=== PATIENT | female | born 1950 | race American Indian/Alaskan Native ===

== ENCOUNTER 2018-04-10 21:31 | Emergency (ER) | payer MEDICARE ==
[2018-04-10] MEDS ORDERED: CATAPRES PO ONE (22:45)
[2018-04-11] MEDS ORDERED: NORCO 5/325 ONE (01:19)
[2018-04-11] MEDS ORDERED: NORCO 5/325 PO ONE (01:21)
[2018-04-11] MEDS ORDERED: COZAAR PO ONE (01:21)
[2018-04-11 03:46] VITALS: BP 199/115
[2018-04-11] MEDS ORDERED: XYLOCAINE 1% 20 mL INFILTRATI ONE (04:15)
[2018-04-11] MEDS ORDERED: BOOSTRIX IM ONE (04:15)
--- NOTE | 2018-04-11 04:46 | XRay Report ---
FINAL REPORT EXAM: XR FOOT 3+V LT HISTORY: laceration blunt trauma TECHNIQUE: Three views of the left foot were obtained. FINDINGS: There is a hallux valgus deformity of the 1st metatarsal phalangeal joint. There is no evidence of fracture or dislocation. The soft tissues otherwise are unremarkable. IMPRESSION: Hallux valgus deformity. No evidence of fracture or soft tissue injury.
--- NOTE | 2018-04-11 05:52 | Emergency Department Report ---
ED Lower Extremity HPI - General Chief Complaint: Extremity Injury, Lower Stated Complaint: L FOOT PAIN Time Seen by Provider: 04/11/18 04:12 Source: patient Mode of arrival: Ambulatory Limitations: No Limitations - History of Present Illness Initial Comments: Patient is 67-year-old female presents after his drop in the mirror on her left great toe splitting nailpain with ambulation r and swelling incident happened about 14 hours ago All bleeding is controlled all bleeding is controlled MD Complaint: foot injury Injury: Toes: Left (left Great Toe ) Type of Injury: blunt Place: home Severity: moderate Severity scale (0 -10): 5 Improves With: nothing Worsens With: weight bearing, movement, palpation Context: direct blow Associated Symptoms: snap/pop sensation, swelling, tingling, ambulatory. denies : numbness - Related Data Previous Rx's Medication Instructions Recorded Last Taken Type Cephalexin [Keflex] 500 mg PO Q8HR #30 cap 04/11/18 Unknown Rx traMADol [Ultram] 50 mg PO Q6HR PRN #15 tablet 04/11/18 Unknown Rx Allergies Allergy/AdvReac Type Severity Reaction Status Date / Time No Known Allergies Allergy Unverified 04/10/18 22:38 ED Review of Systems ROS: Stated complaint: L FOOT PAIN Other details as noted in HPI Constitutional: denies: chills, fever Eyes: denies: eye pain, eye discharge, vision change ENT: denies: ear pain, throat pain Respiratory: denies: cough, shortness of breath, wheezing Cardiovascular: denies: chest pain, palpitations Endocrine: no symptoms reported Gastrointestinal: denies: abdominal pain, nausea, diarrhea Genitourinary: denies: urgency, dysuria, discharge Musculoskeletal: joint swelling, arthralgia, myalgia Skin: denies: rash, lesions Neurological: denies: headache, weakness, paresthesias Psychiatric: denies: anxiety, depression Hematological/Lymphatic: denies: easy bleeding, easy bruising ED Past Medical Hx - Past Medical History Previous Medical History?: Yes Hx Hypertension: Yes Hx Diabetes: Yes - Surgical History Past Surgical History?: Yes Additional Surgical History: Tubaligation x 30 years ago - Social History Smoking Status: Never Smoker Substance Use Type: Prescribed - Medications Home Medications: Home Medications Medication Instructions Recorded Confirmed Last Taken Type Cephalexin [Keflex] 500 mg PO Q8HR #30 cap 04/11/18 Unknown Rx traMADol [Ultram] 50 mg PO Q6HR PRN #15 tablet 04/11/18 Unknown Rx ED Physical Exam - General Limitations: No Limitations General appearance: alert, in no apparent distress - Head Head exam: Present: atraumatic, normocephalic - Eye Eye exam: Present: normal appearance - ENT ENT exam: Present: mucous membranes moist - Neck Neck exam: Present: normal inspection - Cardiovascular Cardiovascular Exam: Present: regular rate, normal rhythm. Absent: systolic murmur, diastolic murmur, rubs, gallop - GI/Abdominal GI/Abdominal exam: Present: soft, normal bowel sounds - Rectal Rectal exam: Present: normal inspection - Extremities Exam Extremities exam: Present: tenderness, normal capillary refill, pedal edema, joint swelling, calf tenderness - Expanded Lower Extremity Exam Left Knee exam: Absent: normal inspection, dislocation, erythema, effusion, pain w/ pronation/supination, posterior draw sign, pain/laxity with valgus, pain/laxity with varus, full knee extension, full ROM, tenderness, swelling, abrasion, laceration, ecchymosis, deformity, crepidus Foot/Toe exam: Present: full ROM, tenderness, swelling, laceration. Absent: ecchymosis, deformity, crepidus Neuro vascular tendon exam: Present: no vascular compromise, abnormal cap refill. Absent: pulse deficit, motor deficit, sensory deficit, tendon deficit, extremity cold to touch, pallor, abnormal 2-point discrimination, decreased fine /light touch, foot drop, peroneal nerve deficit Gait: Positive: observed and normal, observed and limited by pain - Back Exam Back exam: Present: normal inspection, muscle spasm, paraspinal tenderness. Absent: CVA tenderness (L) - Neurological Exam Neurological exam: Present: alert, oriented X3 ED Course Vital Signs 04/10/18 04/10/18 04/11/18 22:38 22:48 01:14 Temperature 97.9 F Pulse Rate 78 78 76 Respiratory 16 17 Rate Blood Pressure 199/109 199/109 Blood Pressure 199/109 183/114 [Right] O2 Sat by Pulse 98 98 Oximetry 04/11/18 03:35 Temperature Pulse Rate 69 Respiratory 17 Rate Blood Pressure Blood Pressure 199/115 [Right] O2 Sat by Pulse 99 Oximetry - I & D Left Plantar Toe Site: left great toe Blade Size: 11 I & D Procedure: betadine prep Progress: left great toe partial avulsion , sight cleaned with betadine solution anesthesia wth 1% lidocaine, t,parital nail removed intact ,all beeding controlled, rom intact , sterile dressing applied , pt given wound care isntructions , pt tolerated with minimal distress , ED Lower Extremity MDM - Radiology Data Radiology results: report reviewed, image reviewed no fracture no soft tissue injury - Medical Decision Making this a partia nail avulsion , nail removed see procedure note,pt is pcn allergic will dc to home with rx for keflex, ultram, wound care instructons , pt verbal ize agreement and understanding of same. pt is ambulatory with steady gate at this time , all bleeding is controlle, Critical care attestation.: If time is entered above; I have spent that time in minutes in the direct care of this critically ill patient, excluding procedure time. ED Disposition Clinical Impression: Nail avulsion, toe Qualifiers: Encounter type: initial encounter Qualified Code(s): S91.209A - Unspecified open wound of unspecified toe(s) with damage to nail, initial encounter Disposition: DC-01 TO HOME OR SELFCARE Is pt being admited?: No Does the pt Need Aspirin: No Condition: Good Instructions: Toenail/Fingernail Removal (ED) Prescriptions: Cephalexin [Keflex] 500 mg PO Q8HR #30 cap traMADol [Ultram] 50 mg PO Q6HR PRN #15 tablet PRN Reason: Pain Referrals: RACHNA SCANLON MD [Primary Care Provider] - 3-5 Days Forms: Work/School Release Form(ED) Time of Disposition: 06:16
== END 2018-04-11 06:16 | disposition home or self-care (01) ==
LOC: ED 21:31
DX: S91.202A Unspecified open wound of left great toe with damage to nail, initial encounter (principal); I10 Essential (primary) hypertension; E11.9 Type 2 diabetes mellitus without complications; W20.8XXA Other cause of strike by thrown, projected or falling object, initial encounter; Y93.89 Activity, other specified; Y92.89 Other specified places as the place of occurrence of the external cause; Y99.8 Other external cause status
CPT/HCPCS: 90471; 90715; 99283

== ENCOUNTER 2018-06-30 13:20 | Emergency (ER) | payer MEDICARE ==
--- NOTE | 2018-06-30 16:04 | Emergency Department Report ---
- General Chief complaint: Skin Rash Stated complaint: ALLERGIC REACTION Time Seen by Provider: 06/30/18 15:52 Source: patient Mode of arrival: Ambulatory Limitations: No Limitations - History of Present Illness Initial comments: Patient reports painful rash on the right arm and hand that started five days MD complaint: rash Onset/Timin -: days(s) Tetanus Up to Date: unsure Location: RUE, R hand Severity: severe Severity scale (0 -10): 9 Quality: aching, constant Consistency: constant Improves with: none Worsens with: none Context: other (unknown) Associated symptoms: athralgias Treatments Prior to Arrival: other (heating pad) - Related Data Previous Rx's Medication Instructions Recorded Last Taken Type cephALEXin [Keflex] 500 mg PO Q8HR #30 cap 04/11/18 Unknown Rx traMADol [Ultram] 50 mg PO Q6HR PRN #15 tablet 04/11/18 Unknown Rx Acetaminophen with Codeine 1 each PO Q6H #10 tablet 06/30/18 Unknown Rx [Tylenol with Codeine #3 Tablet] Valacyclovir HCl [Valtrex] 1,000 mg PO TID #21 tablet 06/30/18 Unknown Rx Allergies Allergy/AdvReac Type Severity Reaction Status Date / Time No Known Allergies Allergy Unverified 04/10/18 22:38 Abscess Boil HPI - HPI Chief Complaint: Skin Rash Stated Complaint: ALLERGIC REACTION Time Seen by Provider: 06/30/18 15:52 Home Medications: Previous Rx's Medication Instructions Recorded Last Taken Type cephALEXin [Keflex] 500 mg PO Q8HR #30 cap 04/11/18 Unknown Rx traMADol [Ultram] 50 mg PO Q6HR PRN #15 tablet 04/11/18 Unknown Rx Acetaminophen with Codeine 1 each PO Q6H #10 tablet 06/30/18 Unknown Rx [Tylenol with Codeine #3 Tablet] Valacyclovir HCl [Valtrex] 1,000 mg PO TID #21 tablet 06/30/18 Unknown Rx Allergies/Adverse Reactions: Allergies Allergy/AdvReac Type Severity Reaction Status Date / Time No Known Allergies Allergy Unverified 04/10/18 22:38 ED Review of Systems ROS: Stated complaint: ALLERGIC REACTION Other details as noted in HPI Constitutional: denies: chills, fever Eyes: denies: eye pain, eye discharge, vision change ENT: denies: ear pain, throat pain, hearing loss, epistaxis Respiratory: denies: cough, shortness of breath, SOB with exertion, SOB at rest , stridor, wheezing Cardiovascular: denies: chest pain, palpitations, dyspnea on exertion, orthopnea Endocrine: no symptoms reported Gastrointestinal: denies: abdominal pain, nausea, diarrhea Genitourinary: denies: urgency, dysuria, discharge Musculoskeletal: denies: back pain, joint swelling, arthralgia Skin: rash (RUE and right hand). denies: lesions, change in color, change in hair/nails, pruritus Neurological: denies: headache, weakness, paresthesias Psychiatric: denies: anxiety, depression Hematological/Lymphatic: denies: easy bleeding, easy bruising ED Past Medical Hx - Past Medical History Hx Hypertension: Yes Hx Diabetes: Yes - Surgical History Additional Surgical History: Tubaligation x 30 years ago - Social History Smoking Status: Never Smoker Substance Use Type: Alcohol - Medications Home Medications: Home Medications Medication Instructions Recorded Confirmed Last Taken Type cephALEXin [Keflex] 500 mg PO Q8HR #30 cap 04/11/18 Unknown Rx traMADol [Ultram] 50 mg PO Q6HR PRN #15 tablet 04/11/18 Unknown Rx Acetaminophen with Codeine 1 each PO Q6H #10 tablet 06/30/18 Unknown Rx [Tylenol with Codeine #3 Tablet] Valacyclovir HCl [Valtrex] 1,000 mg PO TID #21 tablet 06/30/18 Unknown Rx ED Physical Exam - General Limitations: No Limitations General appearance: alert, in no apparent distress - Eye Eye exam: Present: normal appearance, PERRL, EOMI - ENT ENT exam: Present: normal exam, normal orophraynx, mucous membranes moist. Absent: mucous membranes dry - Neck Neck exam: Present: normal inspection, full ROM. Absent: tenderness, meningismus, lymphadenopathy, thyromegaly - Respiratory Respiratory exam: Present: normal lung sounds bilaterally. Absent: respiratory distress, wheezes, rales, rhonchi, stridor, chest wall tenderness, accessory muscle use, decreased breath sounds, prolonged expiratory - Cardiovascular Cardiovascular Exam: Present: regular rate, normal rhythm, normal heart sounds. Absent: systolic murmur, diastolic murmur, rubs, gallop - Extremities Exam Extremities exam: Present: normal inspection, full ROM, normal capillary refill. Absent: tenderness, pedal edema, joint swelling - Back Exam Back exam: Present: normal inspection, full ROM. Absent: tenderness, CVA tenderness (R), CVA tenderness (L), muscle spasm, paraspinal tenderness, vertebral tenderness, rash noted - Neurological Exam Neurological exam: Present: alert, oriented X3, CN II-XII intact, normal gait, reflexes normal. Absent: motor sensory deficit - Psychiatric Psychiatric exam: Present: normal affect, normal mood - Skin Skin exam: Present: warm, intact, rash, vesicles (TTP dermatomal clustered vesicles on an erythematous base RUE, right dorsum and palmar hand). Absent: dry, cyanosis, diaphoretic, urticaria, petechiae, pallor, abrasion, ecchymosis ED Course Vital Signs 06/30/18 13:26 Temperature 98 F Pulse Rate 89 Respiratory 18 Rate Blood Pressure 180/95 O2 Sat by Pulse 99 Oximetry ED Medical Decision Making - Lab Data Vital Signs 06/30/18 13:26 Temperature 98 F Pulse Rate 89 Respiratory 18 Rate Blood Pressure 180/95 O2 Sat by Pulse 99 Oximetry - Medical Decision Making During the course of ED, all other systems were unremarkable except for documentation. Patient was sent home with prescriptions for Tylenol #3 and Vatrex, instructed to follow up with PCP this week, she verbalized understanding - Differential Diagnosis Shingles, Maculopapular lesions Critical care attestation.: If time is entered above; I have spent that time in minutes in the direct care of this critically ill patient, excluding procedure time. ED Disposition Clinical Impression: Shingles Qualifiers: Herpes zoster complications: without complications Qualified Code(s): B02.9 - Zoster without complications Disposition: -01 TO HOME OR SELFCARE Is pt being admited?: No Does the pt Need Aspirin: No Condition: Stable Instructions: Herpes Zoster (ED) Additional Instructions: Take medication as directed. No drinking or driving while taking pain medication. Follow up with your PCP this week Prescriptions: Acetaminophen with Codeine [Tylenol with Codeine #3 Tablet] 1 each PO Q6H #10 tablet Valacyclovir HCl [Valtrex] 1,000 mg PO TID #21 tablet Referrals: PRIMARY CARE, [Primary Care Provider] - 3-5 Days Time of Disposition: 16:11
[2018-06-30 16:19] VITALS: BP 136/78
== END 2018-06-30 16:20 | disposition home or self-care (01) ==
LOC: ED 13:20
DX: B02.9 Zoster without complications (principal); I10 Essential (primary) hypertension; E11.9 Type 2 diabetes mellitus without complications; Z98.51 Tubal ligation status
CPT/HCPCS: 99282

== ENCOUNTER 2019-09-05 22:02 | Emergency (ER) | payer MEDICARE, OTHER ==
[2019-09-05 22:17] VITALS: BP 141/97
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
== END 2019-09-06 01:16 | disposition home or self-care (01) ==
LOC: ED 22:02
DX: S16.1XXA Strain of muscle, fascia and tendon at neck level, initial encounter (principal); S39.012A Strain of muscle, fascia and tendon of lower back, initial encounter; I10 Essential (primary) hypertension; E11.9 Type 2 diabetes mellitus without complications; V49.49XA Driver injured in collision with other motor vehicles in traffic accident, initial encounter; Y93.89 Activity, other specified; Y92.89 Other specified places as the place of occurrence of the external cause; Y99.8 Other external cause status
CPT/HCPCS: 99282

== ENCOUNTER 2022-04-11 02:31 | Emergency (ER) | payer MEDICARE, OTHER ==
[2022-04-11 04:26] LABS: Basophils % (Auto) 0.6 % (0.0-1.8); Eosinophils # (Auto) 0.1 K/mm3 (0.0-0.4); Eosinophils % (Auto) 0.7 % (0.0-4.3); Hematocrit 39.7 % (30.3-42.9); Lymphocytes % (Auto) 28.5 % (13.4-35.0); Mean Corpuscular HGB Conc 33 % (30-34); Mean Corpuscular Volume 83 fl (79-97); Monocytes # (Auto) 0.6 K/mm3 (0.0-0.8); Monocytes % (Auto) 8.8 % (0.0-7.3); Platelet Count 254 K/mm3 (140-440)
[2022-04-11 04:38] LABS: BUN/Creatinine Ratio 23; Blood Urea Nitrogen 21 mg/dL (7-17); Calcium 10.8 mg/dL (8.4-10.2); Hemolysis Index 3
--- NOTE | 2022-04-11 07:48 | Event Note ---
ED Screening Note ED Screening Note: pt in ER 0700 inc BG labs noted This initial assessment/diagnostic orders/clinical plan/treatment(s) is/are subject to change based on patients health status, clinical progression and re- assessment by fellow clinical providers in the ED. Further treatment and workup at subsequent clinical providers discretion. Patient/guardian urged not to elope from the ED as their condition may be serious if not clinically assessed and managed. Initial orders include: CN Negar aware pt present
--- NOTE | 2022-04-11 08:12 | Emergency Department Report ---
ED General Adult HPI - General Chief complaint: Hyperglycemia Stated complaint: UNRINATING EVERY 30 MINS Time Seen by Provider: 04/11/22 08:11 Source: patient, RN notes reviewed, old records reviewed Mode of arrival: Ambulatory Limitations: No Limitations - History of Present Illness Initial comments: The patient was evaluated in the emergency department for symptoms described in the history of present illness. He/she was evaluated in the context of the global COVID-19 pandemic, which necessitated consideration that the patient might be at risk for infection with the virus that causes COVID-19. Institutional protocols and algorithms that pertain to the evaluation of patients at risk for COVID-19 are in a state of rapid change based on informat ion released by regulatory bodies including the CDC and federal and state organizations. These policies and algorithms were followed during the patient's care in the emergency department. Please note that these policies, procedures and recommendations changed on a rapid basis. This is a 71-year-old female with a history of type 2 diabetes, who is noncompliant with metformin because she does not like side effect profile, who presents to the department today with complaints of frequent urination without physical pain. Patient also reports that she thinks that she has a yeast infection. Patient reports that she is currently switching primary care doctors, and has an appointment in approximately 2weeks to see a new primary care doctor, and evaluate outpatient medications for diabetic control. The patient does endorse that she is compliant with her diabetic diet. Her body mass index exceeds 30. She denies physical pain at this time -: days(s) Consistency: intermittent Improves with: none Worsens with: none Associated Symptoms: denies other symptoms - Related Data Previous Rx's Medication Instructions Recorded Last Taken Type cephALEXin [Keflex] 500 mg PO Q8HR #30 cap 04/11/18 Unknown Rx Valacyclovir HCl [Valtrex] 1,000 mg PO TID #21 tablet 06/30/18 Unknown Rx metFORMIN [Glucophage] 500 mg PO BID #60 tab 04/11/22 Unknown Rx Allergies Allergy/AdvReac Type Severity Reaction Status Date / Time No Known Allergies Allergy Unverified 04/10/18 22:38 ED Review of Systems ROS: Stated complaint: UNRINATING EVERY 30 MINS Other details as noted in HPI Comment: All other systems reviewed and negative Genitourinary: urgency, frequency, other ("Yeast infection"). denies: dysuria ED Past Medical Hx - Past Medical History Hx Hypertension: Yes Hx Diabetes: Yes - Surgical History Additional Surgical History: Tubaligation x 30 years ago - Social History Smoking Status: Never Smoker Substance Use Type: Alcohol, Marijuana - Medications Home Medications: Home Medications Medication Instructions Recorded Confirmed Last Taken Type cephALEXin [Keflex] 500 mg PO Q8HR #30 cap 04/11/18 Unknown Rx Valacyclovir HCl [Valtrex] 1,000 mg PO TID #21 tablet 06/30/18 Unknown Rx metFORMIN [Glucophage] 500 mg PO BID #60 tab 04/11/22 Unknown Rx ED Physical Exam - General Limitations: No Limitations General appearance: alert, in no apparent distress, obese - Head Head exam: Present: atraumatic, normocephalic - Eye Eye exam: Present: normal appearance, EOMI. Absent: nystagmus - ENT ENT exam: Present: normal exam, normal orophraynx, mucous membranes moist, normal external ear exam - Neck Neck exam: Present: normal inspection, full ROM. Absent: tenderness, meningismus - Respiratory Respiratory exam: Present: normal lung sounds bilaterally. Absent: respiratory distress, wheezes, rales, rhonchi, stridor, decreased breath sounds - Cardiovascular Cardiovascular Exam: Present: regular rate, normal rhythm, normal heart sounds. Absent: bradycardia, tachycardia, irregular rhythm, systolic murmur, diastolic murmur, rubs, gallop - GI/Abdominal GI/Abdominal exam: Present: soft. Absent: distended, tenderness, guarding, rebound, rigid, pulsatile mass - Extremities Exam Extremities exam: Present: normal inspection, full ROM, other (2+ pulses noted in the bilateral upper and lower extremities. There is no palpable cord. negative Homans sign. Muscular compartments are soft. The pelvis is stable.). Absent: pedal edema, calf tenderness - Back Exam Back exam: Present: normal inspection. Absent: tenderness, CVA tenderness (R), CVA tenderness (L), paraspinal tenderness, vertebral tenderness - Neurological Exam Neurological exam: Present: alert, oriented X3, normal gait, other (No facial droop. Tongue midline. Extraocular movements intact bilaterally. Facial sensation intact to light touch in V1, V2, V3 distribution bilaterally. 5 and a 5 strength in 4 extremities. Sensation intact to light touch in 4 extremities.). Absent: motor sensory deficit - Psychiatric Psychiatric exam: Present: normal affect, normal mood - Skin Skin exam: Present: warm, dry, intact, normal color. Absent: rash ED Course Vital Signs 04/11/22 04/11/22 02:47 12:18 Temperature 98.2 F 98.1 F Pulse Rate 87 72 Respiratory 18 18 Rate Blood Pressure 160/100 200/118 [Right] O2 Sat by Pulse 96 100 Oximetry - Reevaluation(s) Reevaluation #1: 04/11/22 09:09 Differential diagnosis, including but not limited to: Noncompliance, hyperglycemia, type 2 diabetes Assessment and plan: 71-year-old female presenting with urinary frequency, in the context of elevated blood glucose levels, in the context of noncompliance. Extensive discussion had with patient regarding need to remain compliant with outpatient diabetic medications, as well as outpatient diabetic diet. Also explained to patient metformin is typically first-line agent after diet lifestyle modifications, discussed that patient may look up appropriate diabetic diet on [place] [employer] website, that of side effect profile of metformin is not acceptable to her, she will need to discuss with her primary care doctor alternative medication options. Laboratory studies show hyperglycemia without significant metabolic acidosis. Urinalysis is pending at this time. We will give fluids, and insulin. Given her report of a possible yeast infection, cover empirically with Diflucan. The patient does not appear to have an emergent medical condition present at this time. She can follow-up with outpatient primary care for her chronic issues 04/11/22 12:36 Patient in no acute distress. Glucose is improved. Pyuria without bacteria appreciated. Elevated blood pressure chronic. Patient resting comfortably in stretcher in no acute distress. Please reference [employer] clinical policy on asymptomatic hypertension. May discharge with outpatient follow-up ED Medical Decision Making - Lab Data Result diagrams: 04/11/22 03:49 04/11/22 03:49 Vital Signs 04/11/22 02:47 Temperature 98.2 F Pulse Rate 87 Respiratory 18 Rate Blood Pressure 160/100 [Right] O2 Sat by Pulse 96 Oximetry Lab Results 04/11/22 04/11/22 04/11/22 Range/Units 02:53 03:49 03:49 WBC 7.2 (4.5-11.0) K/mm3 RBC 4.80 (3.65-5.03) M/mm3 Hgb 13.0 (10.1-14.3) gm/dl Hct 39.7 (30.3-42.9) % MCV 83 (79-97) fl MCH 27 L (28-32) pg MCHC 33 (30-34) % RDW 15.0 (13.2-15.2) % Plt Count 254 (140-440) K/mm3 Lymph % (Auto) 28.5 (13.4-35.0) % [place] % (Auto) 8.8 H (0.0-7.3) % Eos % (Auto) 0.7 (0.0-4.3) % Baso % (Auto) 0.6 (0.0-1.8) % Lymph # (Auto) 2.0 (1.2-5.4) K/mm3 [place] # (Auto) 0.6 (0.0-0.8) K/mm3 Eos # (Auto) 0.1 (0.0-0.4) K/mm3 Baso # (Auto) 0.0 (0.0-0.1) K/mm3 Seg Neutrophils % 61.4 (40.0-70.0) % Seg Neutrophils # 4.4 (1.8-7.7) K/mm3 Sodium 137 (137-145) mmol/L Potassium 4.7 (3.6-5.0) mmol/L Chloride 99.7 (98-107) mmol/L Carbon Dioxide 24 (22-30) mmol/L Anion Gap 18 mmol/L BUN 21 H (7-17) mg/dL Creatinine 0.9 (0.6-1.2) mg/dL Estimated GFR > 60 ml/min BUN/Creatinine Ratio 23 % Glucose 390 H (65-100) mg/dL POC Glucose 422 H (70-105) mg/dL Calcium 10.8 H (8.4-10.2) mg/dL Urine RBC (Auto) (0.0-6.0) /HPF U Epithel Cells (Auto) (0-13.0) /HPF 04/11/22 Range/Units 08:19 WBC (4.5-11.0) K/mm3 RBC (3.65-5.03) M/mm3 Hgb (10.1-14.3) gm/dl Hct (30.3-42.9) % MCV (79-97) fl MCH (28-32) pg MCHC (30-34) % RDW (13.2-15.2) % Plt Count (140-440) K/mm3 Lymph % (Auto) (13.4-35.0) % [place] % (Auto) (0.0-7.3) % Eos % (Auto) (0.0-4.3) % Baso % (Auto) (0.0-1.8) % Lymph # (Auto) (1.2-5.4) K/mm3 [place] # (Auto) (0.0-0.8) K/mm3 Eos # (Auto) (0.0-0.4) K/mm3 Baso # (Auto) (0.0-0.1) K/mm3 Seg Neutrophils % (40.0-70.0) % Seg Neutrophils # (1.8-7.7) K/mm3 Sodium (137-145) mmol/L Potassium (3.6-5.0) mmol/L Chloride (98-107) mmol/L Carbon Dioxide (22-30) mmol/L Anion Gap mmol/L BUN (7-17) mg/dL Creatinine (0.6-1.2) mg/dL Estimated GFR ml/min BUN/Creatinine Ratio % Glucose (65-100) mg/dL POC Glucose (70-105) mg/dL Calcium (8.4-10.2) mg/dL Urine RBC (Auto) 3.0 (0.0-6.0) /HPF U Epithel Cells (Auto) 3.0 (0-13.0) /HPF Critical care attestation.: If time is entered above; I have spent that time in minutes in the direct care o f this critically ill patient, excluding procedure time. ED Disposition Clinical Impression: Hyperglycemia, Body mass index 31.0-31.9, adult, Noncompliance, Elevated blood pressure reading Disposition: 01 HOME / SELF CARE / HOMELESS Is pt being admited?: No Does the pt Need Aspirin: No Condition: Good Instructions: Exercising to Lose Weight, Obesity, Adult, [id number] Additional Instructions: We recommend that the patient exercise as tolerated, aggressively lose weight as tolerated, consume plenty of fiber, vegetables and lean protein, and consume a diabetic appropriate diet. For assistance with constructing appropriate diet, patient may reference the [place] [employer] website. Please continue current outpatient medications. Please continue current [email or web address] We recommend that the patient continue her metformin, for glucose control in addition to the aforementioned interventions, in addition to following up with her outpatient primary care doctor for medication evaluation. Please note that metformin does have a side effect profile, which includes abdominal pain, cramping, nausea vomiting diarrhea. By exercising, losing weight, and adhering to an appropriate diabetic diet, patient may obviate the need for medication. We recommend follow-up with your primary care doctor within 2 weeks. Please return to the emergency room right away with new pain, worsened pain, migration of pain, projectile vomiting, change in mental status, confusion, inability tolerate liquid feeds, new, worsened or different symptoms not present on the initial emergency room evaluation Noncompliance with diabetic diet, and diabetic medications, may result in high blood sugar levels, which in extreme situations may cause diabetic ketoacidosis, which is a potentially dangerous and life-threatening medical condition. Therefore, it is important to eat as advised, and take prescribed medications as advised Prescriptions: metFORMIN [Glucophage] 500 mg PO BID #60 tab Referrals: [facility] [Provider Group] - 7-10 days Forms: Work/School Release Form(ED)
[2022-04-11] MEDS ORDERED: INSULIN REGULAR, HUMAN 100 UNITS/1 ML IV ONE (08:22)
[2022-04-11] MEDS ORDERED: LACTATED RINGERS 1,000 ML IV ONE (08:22)
[2022-04-11] MEDS ORDERED: FLUCONAZOLE 100 MG TAB PO SCH (09:00)
[2022-04-11 09:39] LABS: Bilirubin,Urine Negative (Negative); Blood,Urine Negative (Negative); Color,Urine Straw (Yellow)
[2022-04-11 09:40] LABS: Protein,Urine <15 mg/dL mg/dL (Negative)
[2022-04-11 12:18] VITALS: BP 200/118
== END 2022-04-11 13:12 | disposition home or self-care (01) ==
LOC: ED 02:31
DX: E11.65 Type 2 diabetes mellitus with hyperglycemia (principal); Z68.31 Body mass index [BMI] 31.0-31.9, adult; I10 Essential (primary) hypertension; F10.20 Alcohol dependence, uncomplicated; F12.90 Cannabis use, unspecified, uncomplicated
CPT/HCPCS: 36415; 80048; 81001; 82962; 85025; 87086; 96361; 96374; 99283; J7120; 96367; Q9967; J1815